=== PATIENT | male | born 1975 | race American Indian/Alaskan Native ===

== ENCOUNTER 2022-04-28 08:14 | Emergency (ER) | payer OTHER ==
[2022-04-28 08:39] VITALS: BP 176/128
[2022-04-28] MEDS ORDERED: ACETAMINOPHEN 500 MG TAB PO ONE (10:28)
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
== END 2022-04-28 13:46 | disposition home or self-care (01) ==
LOC: ED 08:14
DX: M62.830 Muscle spasm of back (principal); V89.2XXA Person injured in unspecified motor-vehicle accident, traffic, initial encounter; Y93.89 Activity, other specified; Y92.89 Other specified places as the place of occurrence of the external cause; Y99.8 Other external cause status
CPT/HCPCS: 70450; 72100; 72125; 99284